=== PATIENT | male | born 1985 | race Caucasian/White ===

== ENCOUNTER 2016-11-25 01:44 | Emergency (ER) | payer OTHER ==
--- NOTE | 2016-11-25 02:01 | ED Physician Documentation ---
PD HPI ABD PAIN - Stated complaint Stated Complaint: ABD/BACK PX - Chief complaint Chief Complaint: Abd Pain - History obtained from History obtained from: Patient - History of Present Illness Timing - onset: How many hours ago (2-3 hours ago (also 24 hours ago, but resolved until 2-3 hours FACING BASTER JUMPBASTING)) Timing - duration: Hours Timing - details: Abrupt onset, Waxing and waning Pain level now: 8 Quality: Pain Location: RUQ Radiation: Right flank Improved by: Other (no ameliorating factors) Worsened by: Other (no exacerbating factors) Associated symptoms: Nausea. No: Fever, Vomiting Similar symptoms before: Has not had sx before Recently seen: Not recently seen Review of Systems Constitutional: denies: Fever Cardiac: reports: Reviewed and negative Respiratory: reports: Reviewed and negative GI: reports: Abdominal Pain, Nausea. denies: Vomiting : denies: Dysuria, Frequency PD PAST MEDICAL HISTORY - Past Medical History Past Medical History: No - Past Surgical History Past Surgical History: No - Present Medications Home Medications: Ambulatory Orders Medication Instructions Recorded Confirmed No Known Home Medications [No 11/25/16 11/25/16 Known Home Medications] - Allergies Allergies/Adverse Reactions: Allergies Allergy/AdvReac Type Severity Reaction Status Date / Time No Known Drug Allergies Allergy Verified 11/25/16 01:57 - Social History Does the pt smoke?: No Smoking Status: Never smoker Does the pt drink ETOH?: No Does the pt have substance abuse?: No - Immunizations Immunizations are current?: Yes - POLST Patient has POLST: No PD ED PE NORMAL - Vitals Vital signs reviewed: Yes - General General: Alert and oriented X 3, No acute distress, Well developed/nourished - Cardiac Cardiac: RRR, No murmur - Respiratory Respiratory: No respiratory distress, Clear bilaterally - Abdomen Abdomen: Normal bowel sounds, Soft, Non tender, Non distended - Back Back: No CVA TTP Results - Vitals Vitals: Vital Signs - 24 hr 11/25/16 11/25/16 11/25/16 01:55 02:49 04:15 Temperature 36.8 C 36.8 C Heart Rate 59 L 61 62 Respiratory 16 14 14 Rate Blood Pressure 135/91 H 127/84 H 128/88 H O2 Saturation 100 98 98 Oxygen O2 Source Room air - Labs Labs: Laboratory Tests 11/25/16 11/25/16 11/25/16 02:05 02:05 02:05 WBC 7.7 RBC 5.29 Hgb 15.3 Hct 45.0 MCV 85.1 MCH 28.9 MCHC 34.0 RDW 13.6 Plt Count 223 MPV 9.6 Neut # 3.5 Lymph # 3.2 [place] # 0.7 Eos # 0.2 Baso # 0.0 Absolute Nucleated RBC 0.00 Nucleated RBC % 0.0 Sodium 140 Potassium 3.7 Chloride 104 Carbon Dioxide 25 Anion Gap 11.0 BUN 10 Creatinine 1.1 Estimated GFR (MDRD) 79 L Glucose 115 H Calcium 9.5 Total Bilirubin 0.6 AST 20 ALT 25 Alkaline Phosphatase 60 Total Protein 7.6 Albumin 4.8 Globulin 2.8 Albumin/Globulin Ratio 1.7 Lipase 31 Urine Color YELLOW Urine Clarity CLEAR Urine pH 6.0 Ur Specific [place] 1.010 Urine Protein NEGATIVE Urine Glucose (UA) NEGATIVE Urine Ketones NEGATIVE Urine Occult Blood NEGATIVE Urine Nitrite NEGATIVE Urine Bilirubin NEGATIVE Urine Urobilinogen 0.2 (NORMAL) Ur Leukocyte Esterase NEGATIVE Ur Microscopic Review NOT INDICATED Urine Culture Comments NOT INDICATED - Rads (name of study) CT A/P Radiology: Prelim report reviewed, See rad report PD MEDICAL DECISION MAKING - ED course Complexity details: reviewed results, re-evaluated patient, considered differential, d/w patient ED course: Patient reported good symptomatic relief with toradol. Departure - Departure Disposition: 01 Home, Self Care Clinical Impression: Abdominal pain Condition: Good Instructions: ED Abdominal Pain Unkn Cause Follow-Up: [facility] [Provider Group] [facility] [Provider Group] Discharge Date/Time: 11/25/16 04:16
[2016-11-25 02:14] LABS: BASOPHILS % (AUTO) 0.6 %; EOSINOPHILS # (AUTO) 0.2 10^3/uL (0.0-0.7); HGB - HEMOGLOBIN 15.3 g/dL (14.0-18.0); LYMPHOCYTES # (AUTO) 3.2 10^3/uL (1.5-3.5); LYMPHOCYTES % (AUTO) 42.2 %; MEAN CORPUSCULAR HEMOGLOBIN 28.9 pg (27.0-31.0); MEAN CORPUSCULAR VOLUME 85.1 fL (80.0-94.0); MEAN PLATELET VOLUME 9.6 fL (7.4-11.4); MONOCYTES # (AUTO) 0.7 10^3/uL (0.0-1.0); MONOCYTES % (AUTO) 8.8 %; NEUTROPHILS # (AUTO) 3.5 10^3/uL (1.5-6.6); NEUTROPHILS % (AUTO) 45.4 %; RED BLOOD COUNT 5.29 10^6/uL (4.70-6.10); RED CELL DISTRIBUTION WIDTH 13.6 % (12.0-15.0); UNCORRECTED WHITE BLOOD COUNT 7.7 x10^3/uL; WHITE BLOOD COUNT 7.7 x10^3/uL (4.8-10.8)
[2016-11-25] MEDS ORDERED: KETOROLAC 60 MG/2 ML VIAL IVP STA (02:17)
[2016-11-25] MEDS ORDERED: ONDANSETRON 4 MG/2 ML VIAL IVP STA (02:17)
[2016-11-25 02:18] LABS: BILIRUBIN,URINE NEGATIVE (NEGATIVE)
[2016-11-25 02:20] LABS: UA CHARGE (STRIP ONLY) YES; UR CULTURE IF IND NOT INDICATED
[2016-11-25] MEDS ORDERED: KETOROLAC 30 MG/ML VIAL ONE (02:25)
[2016-11-25] MEDS ORDERED: ONDANSETRON 4 MG/2 ML VIAL ONE (02:25)
[2016-11-25 02:31] LABS: ALBUMIN/GLOBULIN RATIO 1.7 (1.0-2.2); BILIRUBIN,TOTAL 0.6 mg/dL (0.2-1.0); CALCIUM 9.5 mg/dL (8.5-10.3); CREATININE 1.1 mg/dL (0.6-1.2); POTASSIUM 3.7 mmol/L (3.5-5.0); TOTAL PROTEIN 7.6 g/dL (6.7-8.2)
--- NOTE | 2016-11-25 03:08 | CT Preliminary Report ---
Exam: CT Abdomen/Pelvis W/O IMPRESSION: No urinary tract stones or obstruction. [facility] SITE ID: [id number]
--- NOTE | 2016-11-25 03:10 | CT Report ---
EXAM: CT ABDOMEN AND PELVIS (CT KUB) EXAM DATE: 11/25/2016 02:51 AM. CLINICAL HISTORY: Right flank pain. COMPARISONS: None. TECHNIQUE: Routine axial helical CT imaging was performed through the abdomen and pelvis without IV c ontrast. Reconstructions: Coronal and sagittal. In accordance with CT protocol optimization, one or more of the following dose reduction techniques w ere utilized for this exam: automated exposure control, adjustment of mA and/or KV based on patient s ize, or use of iterative reconstructive technique. FINDINGS: Lung Bases: Unremarkable. Right Kidney/Ureter: No stones, hydronephrosis, or hydroureter. No perinephric fat stranding. Left Kidney/Ureter: No stones, hydronephrosis, or hydroureter. No perinephric fat stranding. Other Solid Organs: Noncontrast images of the solid organs are grossly unremarkable. Gallbladder/Bile Ducts: Unremarkable. Peritoneal Cavity: No free fluid, free air or jennifer adenopathy. Bowel is grossly unremarkable. Normal appendix. Pelvic Organs: No bladder stones or wall thickening. Noncontrast images of the visualized pelvic orga ns are unremarkable. Vasculature: Unremarkable. Other: None. IMPRESSION: No urinary tract stones or obstruction. [facility] Referring Provider Line: [phone] SITE ID: [id number]
[2016-11-25] MEDS ORDERED: HYDROcod/ACET 5/325 Prepack 6 PO STA (04:00)
[2016-11-25] MEDS ORDERED: HYDROcod/ACET 5/325 Prepack 6 PO ONE (04:14)
[2016-11-25 04:16] VITALS: BP 128/88
== END 2016-11-25 04:16 | disposition home or self-care (01) ==
LOC: ED 01:44
DX: R10.11 Right upper quadrant pain (principal); R10.31 Right lower quadrant pain
CPT/HCPCS: 36415; 74176; 80053; 81001; 81003; 83690; 85025; 87086; 96374; 96375; 99284

== ENCOUNTER 2017-02-14 10:37 | Outpatient (CLI) | payer OTHER ==
--- NOTE | 2017-02-15 16:21 | XRAY Report ---
DATE OF SERVICE: 02/14/2017 TWO VIEW RIGHT GREAT TOE: 02/14/2017 CLINICAL INDICATION: Pain. FINDINGS: AP, lateral, oblique views of the right great toe demonstrate no evidence of fracture or dislocation. The joint spaces are preserved. No radiopaque foreign body is seen in the soft tissues . IMPRESSION: Normal right great toe. TD: 02/14/2017 18:19
== END 2017-02-14 10:38 | disposition home or self-care (01) ==
LOC: DI 10:37
PROVIDERS: ATTEND Internal Medicine
DX: M79.674 Pain in right toe(s) (principal)
CPT/HCPCS: 73660

== ENCOUNTER 2017-03-17 04:04 | Emergency (ER) | payer OTHER ==
--- NOTE | 2017-03-17 04:33 | ED Physician Documentation ---
PD HPI MHE - Stated complaint Stated Complaint: SI - Chief complaint Chief Complaint: MHE - History obtained from History obtained from: Patient - History of Present Illness Primary symptom: Suicidal ideation, Depression (he says he had had depression for "awhile" with treatment about 4-5 months ago with antidepressant for a month that did not help. He does not have current counseling nor antidepressants. Had worsening feeling of depression this past evening with thoughts of wanting to cut his wrists. He told his about it and she brought him here. He had some alcohol in the evening. Denies drug use. He would like help for his depression. Currently sees [place] [facility]. Retired from [employer] about 5 years ago.). No: Self harm - cut Timing - onset: Yesterday Contributing factors: No: Substance abuse - ETOH, Substance abuse - drugs Similar symptoms before: Diagnosis (depression, states he did cut his wrists several years ago. Denies hospitalization for psych.) Recently seen: Not recently seen Review of Systems Constitutional: denies: Fever, Chills Nose: denies: Rhinorrhea / runny nose, Congestion Throat: denies: Sore throat Respiratory: denies: Cough GI: denies: Vomiting, Diarrhea Neurologic: denies: Generalized weakness, Focal weakness, Numbness, Altered mental status, Headache, Head injury Psychiatric: reports: Depressed, Suicidal (ideation without feeling acute intent ). denies: Homicidal, Hallucinations, Delusions, Anxiety, Insomnia Endocrine: denies: Weight loss Immunocompromised: denies: Immunocompromised PD PAST MEDICAL HISTORY - Past Medical History Cardiovascular: None Respiratory: None Neuro: None Psych: Depression - Past Surgical History Past Surgical History: No - Present Medications Home Medications: Ambulatory Orders Medication Instructions Recorded Confirmed No Known Home Medications [No 11/25/16 03/17/17 Known Home Medications] - Allergies Allergies/Adverse Reactions: Allergies Allergy/AdvReac Type Severity Reaction Status Date / Time No Known Drug Allergies Allergy Verified 03/17/17 04:23 - Living Situation Living Situation: reports: With spouse/s.o. Living Arrangement: reports: At home - Social History Does the pt smoke?: No Smoking Status: Never smoker Does the pt drink ETOH?: Yes Does the pt have substance abuse?: No - Family History Family history: reports: Non contributory - Immunizations Immunizations are current?: Yes - POLST Patient has POLST: No PD ED PE NORMAL - Vitals Vital signs reviewed: Yes - General General: Alert and oriented X 3, No acute distress, Well developed/nourished - HEENT HEENT: Atraumatic, PERRL (nonicteric), Pharynx benign - Neck Neck: Supple, no meningeal sign, No adenopathy - Cardiac Cardiac: RRR, No murmur - Respiratory Respiratory: Clear bilaterally - Abdomen Abdomen: Soft, Non tender - Male Male : Deferred - Rectal Rectal: Deferred - Back Back: No CVA TTP - Derm Derm: Normal color, Warm and dry - Extremities Extremities: Normal ROM s pain, No edema, No calf tenderness / cord - Neuro Neuro: Alert and oriented X 3, No motor deficit, Normal speech Eye Opening: Spontaneous Motor: Obeys Commands Verbal: Oriented GCS Score: 15 - Psych Psych: No: Normal mood (depressed and somewhat flat affect) Results - Vitals Vitals: Vital Signs - 24 hr 03/17/17 04:19 Temperature 36.2 C L Heart Rate 82 Respiratory 16 Rate Blood Pressure 120/87 H O2 Saturation 96 Oxygen O2 Source Room air - Labs Labs: Laboratory Tests 03/17/17 03/17/17 03/17/17 04:15 04:58 04:58 WBC 4.6 L RBC 5.15 Hgb 14.9 Hct 45.5 MCV 88.4 MCH 28.9 MCHC 32.7 RDW 14.2 Plt Count 248 MPV 8.9 Neut # 2.4 Lymph # 1.9 [place] # 0.3 Eos # 0.0 Baso # 0.0 Absolute Nucleated RBC 0.00 Nucleated RBC % 0.0 Sodium 143 Potassium 3.7 Chloride 108 Carbon Dioxide 23 Anion Gap 12.0 BUN 10 Creatinine 0.7 Estimated GFR (MDRD) 133 Glucose 116 H Calcium 9.2 Total Bilirubin 0.6 AST 21 ALT 19 Alkaline Phosphatase 54 Total Protein 7.4 Albumin 4.4 Globulin 3.0 Albumin/Globulin Ratio 1.5 Lipase 16 L TSH Urine Color YELLOW Urine Clarity CLEAR Urine pH 5.5 Ur Specific [place] >=1.030 H Urine Protein NEGATIVE Urine Glucose (UA) NEGATIVE Urine Ketones 15 H Urine Occult Blood TRACE-INTA Urine Nitrite NEGATIVE Urine Bilirubin NEGATIVE Urine Urobilinogen 0.2 (NORMAL) Ur Leukocyte Esterase NEGATIVE Ur Microscopic Review NOT INDICATED Urine Culture Comments NOT INDICATED Salicylates < 6.0 Urine Opiates Screen NEGATIVE Ur Oxycodone Screen NEGATIVE Urine Methadone Screen NEGATIVE Ur Propoxyphene Screen NEGATIVE Acetaminophen < 10 L Ur Barbiturates Screen NEGATIVE Ur Tricyclics Screen NEGATIVE Ur Phencyclidine Scrn NEGATIVE Ur Amphetamine Screen NEGATIVE U Methamphetamines Scrn NEGATIVE U Benzodiazepines Scrn NEGATIVE Urine Cocaine Screen NEGATIVE U Cannabinoids Screen NEGATIVE Ethyl Alcohol 196.2 03/17/17 04:58 WBC RBC Hgb Hct MCV MCH MCHC RDW Plt Count MPV Neut # Lymph # [place] # Eos # Baso # Absolute Nucleated RBC Nucleated RBC % Sodium Potassium Chloride Carbon Dioxide Anion Gap BUN Creatinine Estimated GFR (MDRD) Glucose Calcium Total Bilirubin AST ALT Alkaline Phosphatase Total Protein Albumin Globulin Albumin/Globulin Ratio Lipase TSH 1.36 Urine Color Urine Clarity Urine pH Ur Specific [place] Urine Protein Urine Glucose (UA) Urine Ketones Urine Occult Blood Urine Nitrite Urine Bilirubin Urine Urobilinogen Ur Leukocyte Esterase Ur Microscopic Review Urine Culture Comments Salicylates Urine Opiates Screen Ur Oxycodone Screen Urine Methadone Screen Ur Propoxyphene Screen Acetaminophen Ur Barbiturates Screen Ur Tricyclics Screen Ur Phencyclidine Scrn Ur Amphetamine Screen U Methamphetamines Scrn U Benzodiazepines Scrn Urine Cocaine Screen U Cannabinoids Screen Ethyl Alcohol PD MEDICAL DECISION MAKING - ED course Complexity details: considered differential (Patient advised about the time course with needing to clear alcohol level, though SW should be able to talk with him when they come in since he is voluntary and wanting help. I am not sure if he needs hospitalization or just getting set up with counseling. Sounds like he had dysthymia/cyclothymia. ), d/w patient Departure - Departure Clinical Impression: Suicidal ideation Depression Qualifiers: Depression Type: major depressive disorder Major depression recurrence: recurrent Active/Remission status: currently active Major depression episode severity: moderate Qualified Code(s): F33.1 - Major depressive disorder, recurrent, moderate Condition: Stable Record reviewed to determine appropriate education?: Yes
[2017-03-17 04:57] LABS: MUDS CUTOFF CONCENTRATIONS CUTOFF CONC BELOW:
[2017-03-17 04:59] LABS: BILIRUBIN,URINE NEGATIVE (NEGATIVE); GLUCOSE, URINE (UA) NEGATIVE (NEGATIVE); KETONES,URINE (UA) 15 mg/dL (NEGATIVE); LEUKOCYTE ESTERASE, URINE NEGATIVE (NEGATIVE); NITRITE,URINE NEGATIVE (NEGATIVE); OCCULT BLOOD,URINE TRACE-INTA (NEGATIVE); PH,URINE 5.5 PH (5.0-7.5); PROTEIN,URINE NEGATIVE (NEGATIVE); UROBILINOGEN,URINE 0.2 (NORMAL) E.U./dL (NORMAL)
[2017-03-17 05:07] LABS: CLARITY,URINE CLEAR (CLEAR)
[2017-03-17 05:09] LABS: AMPHETAMINE SCREEN,URINE NEGATIVE (NEGATIVE); BENZODIAZEPINES SCREEN, URINE NEGATIVE (NEGATIVE); COCAINE SCREEN URINE NEGATIVE (NEGATIVE); METHADONE SCREEN, URINE NEGATIVE (NEGATIVE); METHAMPHETAMINES SCREEN, URINE NEGATIVE (NEGATIVE); OPIATE SCREEN, URINE NEGATIVE (NEGATIVE); OXYCODONE SCREEN, URINE NEGATIVE (NEGATIVE); PROPOXYPHENE SCREEN, URINE NEGATIVE (NEGATIVE); TRICYCLIC ANTIDEPRESSANT,URINE NEGATIVE (NEGATIVE)
[2017-03-17 05:10] LABS: BASOPHILS % (AUTO) 0.5 %; HGB - HEMOGLOBIN 14.9 g/dL (14.0-18.0); LYMPHOCYTES # (AUTO) 1.9 10^3/uL (1.5-3.5); LYMPHOCYTES % (AUTO) 40.1 %; MEAN CORPUSCULAR HEMOGLOBIN 28.9 pg (27.0-31.0); MEAN CORPUSCULAR HGB CONC 32.7 g/dL (32.0-36.0); MEAN CORPUSCULAR VOLUME 88.4 fL (80.0-94.0); MEAN PLATELET VOLUME 8.9 fL (7.4-11.4); MONOCYTES # (AUTO) 0.3 10^3/uL (0.0-1.0); MONOCYTES % (AUTO) 7.1 %; NEUTROPHILS # (AUTO) 2.4 10^3/uL (1.5-6.6); NEUTROPHILS % (AUTO) 51.3 %; PLT - PLATELET COUNT 248 10^3/uL (130-450); RED BLOOD COUNT 5.15 10^6/uL (4.70-6.10); RED CELL DISTRIBUTION WIDTH 14.2 % (12.0-15.0); WHITE BLOOD COUNT 4.6 x10^3/uL (4.8-10.8)
[2017-03-17 05:19] LABS: ALBUMIN 4.4 g/dL (3.2-5.5); ALBUMIN/GLOBULIN RATIO 1.5 (1.0-2.2); ALKALINE PHOSPHATASE 54 IU/L (42-121); ALT ALANINE AMINOTRANSFERASE 19 IU/L (10-60); AST ASPARTATE AMINOTRANSFERASE 21 IU/L (10-42); BILIRUBIN,TOTAL 0.6 mg/dL (0.2-1.0); BUN - BLOOD UREA NITROGEN 10 mg/dL (6-20); CALCIUM 9.2 mg/dL (8.5-10.3); CARBON DIOXIDE - CO2 23 mmol/L (21-32); CHLORIDE 108 mmol/L (101-111); CREATININE 0.7 mg/dL (0.6-1.2); GFR - MDRD 133 (>89); GLUCOSE 116 mg/dL (70-100); LIPASE 16 U/L (22-51); SALICYLATE < 6.0 mg/dL; SODIUM 143 mmol/L (135-145); TOTAL PROTEIN 7.4 g/dL (6.7-8.2)
[2017-03-17 05:24] LABS: ACETAMINOPHEN < 10 ug/mL (10-30)
--- NOTE | 2017-03-17 08:02 | ED Physician Documentation ---
History of Present Illness - Stated complaint Stated Complaint: SI - Chief complaint Chief Complaint: MHE PD PAST MEDICAL HISTORY - Past Medical History Past Medical History: No Cardiovascular: None Respiratory: None Neuro: None Endocrine/Autoimmune: None GI: None : None HEENT: None Psych: Depression Musculoskeletal: None Derm: None Other Past Medical History: MEDICALLY DISCHARGED FROM [facility] w/ DISABILITY (MENTAL )...DISCHARGED X 1 yr ago supposedly HAS REFERRAL AT [facility] but still waiting... - Past Surgical History Past Surgical History: No - Present Medications Home Medications: Ambulatory Orders Medication Instructions Recorded Confirmed No Known Home Medications [No 11/25/16 03/17/17 Known Home Medications] - Allergies Allergies/Adverse Reactions: Allergies Allergy/AdvReac Type Severity Reaction Status Date / Time No Known Drug Allergies Allergy Verified 03/17/17 04:23 - Social History Does the pt smoke?: No Smoking Status: Never smoker Does the pt drink ETOH?: Yes Does the pt have substance abuse?: No - Immunizations Immunizations are current?: Yes - POLST Patient has POLST: No Results - Vitals Vitals: Vital Signs - 24 hr 03/17/17 03/17/17 03/17/17 04:19 07:01 13:08 Temperature 36.2 C L 36.7 C Heart Rate 82 83 72 Respiratory 16 16 15 Rate Blood Pressure 120/87 H 112/68 104/72 O2 Saturation 96 98 97 Oxygen O2 Source Room air - Labs Labs: Laboratory Tests 03/17/17 03/17/17 03/17/17 04:15 04:58 04:58 WBC 4.6 L RBC 5.15 Hgb 14.9 Hct 45.5 MCV 88.4 MCH 28.9 MCHC 32.7 RDW 14.2 Plt Count 248 MPV 8.9 Neut # 2.4 Lymph # 1.9 [place] # 0.3 Eos # 0.0 Baso # 0.0 Absolute Nucleated RBC 0.00 Nucleated RBC % 0.0 Sodium 143 Potassium 3.7 Chloride 108 Carbon Dioxide 23 Anion Gap 12.0 BUN 10 Creatinine 0.7 Estimated GFR (MDRD) 133 Glucose 116 H Calcium 9.2 Total Bilirubin 0.6 AST 21 ALT 19 Alkaline Phosphatase 54 Total Protein 7.4 Albumin 4.4 Globulin 3.0 Albumin/Globulin Ratio 1.5 Lipase 16 L TSH Urine Color YELLOW Urine Clarity CLEAR Urine pH 5.5 Ur Specific [place] >=1.030 H Urine Protein NEGATIVE Urine Glucose (UA) NEGATIVE Urine Ketones 15 H Urine Occult Blood TRACE-INTA Urine Nitrite NEGATIVE Urine Bilirubin NEGATIVE Urine Urobilinogen 0.2 (NORMAL) Ur Leukocyte Esterase NEGATIVE Ur Microscopic Review NOT INDICATED Urine Culture Comments NOT INDICATED Salicylates < 6.0 Urine Opiates Screen NEGATIVE Ur Oxycodone Screen NEGATIVE Urine Methadone Screen NEGATIVE Ur Propoxyphene Screen NEGATIVE Acetaminophen < 10 L Ur Barbiturates Screen NEGATIVE Ur Tricyclics Screen NEGATIVE Ur Phencyclidine Scrn NEGATIVE Ur Amphetamine Screen NEGATIVE U Methamphetamines Scrn NEGATIVE U Benzodiazepines Scrn NEGATIVE Urine Cocaine Screen NEGATIVE U Cannabinoids Screen NEGATIVE Ethyl Alcohol 196.2 03/17/17 03/17/17 03/17/17 04:58 09:10 11:15 WBC RBC Hgb Hct MCV MCH MCHC RDW Plt Count MPV Neut # Lymph # [place] # Eos # Baso # Absolute Nucleated RBC Nucleated RBC % Sodium Potassium Chloride Carbon Dioxide Anion Gap BUN Creatinine Estimated GFR (MDRD) Glucose Calcium Total Bilirubin AST ALT Alkaline Phosphatase Total Protein Albumin Globulin Albumin/Globulin Ratio Lipase TSH 1.36 Urine Color Urine Clarity Urine pH Ur Specific [place] Urine Protein Urine Glucose (UA) Urine Ketones Urine Occult Blood Urine Nitrite Urine Bilirubin Urine Urobilinogen Ur Leukocyte Esterase Ur Microscopic Review Urine Culture Comments Salicylates Urine Opiates Screen Ur Oxycodone Screen Urine Methadone Screen Ur Propoxyphene Screen Acetaminophen Ur Barbiturates Screen Ur Tricyclics Screen Ur Phencyclidine Scrn Ur Amphetamine Screen U Methamphetamines Scrn U Benzodiazepines Scrn Urine Cocaine Screen U Cannabinoids Screen Ethyl Alcohol 109.0 64.9 PD MEDICAL DECISION MAKING - ED course ED course: assumed care 730 AM 31 male suicidal ideations no harm done per pt (no OD etc) wants help was intoxicated waiting on rpt BA and then SW hubert went to see pt he is feeling a little bit better now denies recent fever cough NVD KO AP CP pt sober approx 11 AM seen by MIGDALIA and not felt to be danger to self or tohers and safe for dc - see MIGDALIA note Departure - Departure Disposition: 01 Home, Self Care Clinical Impression: Suicidal ideation Depression Qualifiers: Depression Type: major depressive disorder Major depression recurrence: recurrent Active/Remission status: currently active Major depression episode severity: moderate Qualified Code(s): F33.1 - Major depressive disorder, recurrent, moderate Condition: Stable
[2017-03-17 13:09] VITALS: BP 104/72
== END 2017-03-17 13:25 | disposition home or self-care (01) ==
LOC: ED 04:04
DX: R45.851 Suicidal ideations (principal); F33.1 Major depressive disorder, recurrent, moderate
CPT/HCPCS: 36415; 80053; 80306; 80307; 80320; 80329; 81001; 81003; 83690; 84443; 85025; 87086; 99283; 99284

== ENCOUNTER 2017-08-02 12:34 | Emergency (ER) | payer OTHER ==
[2017-08-02 13:26] LABS: BASOPHILS % (AUTO) 0.4 %; EOSINOPHILS # (AUTO) 0.1 10^3/uL (0.0-0.7); EOSINOPHILS % (AUTO) 1.3 %; HGB - HEMOGLOBIN 14.7 g/dL (14.0-18.0); LYMPHOCYTES # (AUTO) 1.8 10^3/uL (1.5-3.5); LYMPHOCYTES % (AUTO) 23.7 %; MEAN CORPUSCULAR HEMOGLOBIN 29.7 pg (27.0-31.0); MEAN CORPUSCULAR HGB CONC 33.6 g/dL (32.0-36.0); MEAN CORPUSCULAR VOLUME 88.2 fL (80.0-94.0); MEAN PLATELET VOLUME 8.6 fL (7.4-11.4); MONOCYTES # (AUTO) 0.4 10^3/uL (0.0-1.0); MONOCYTES % (AUTO) 5.9 %; NEUTROPHILS # (AUTO) 5.1 10^3/uL (1.5-6.6); NEUTROPHILS % (AUTO) 68.7 %; PLT - PLATELET COUNT 272 10^3/uL (130-450); RED BLOOD COUNT 4.97 10^6/uL (4.70-6.10); RED CELL DISTRIBUTION WIDTH 14.7 % (12.0-15.0); WHITE BLOOD COUNT 7.4 x10^3/uL (4.8-10.8)
[2017-08-02 13:44] LABS: ALBUMIN 4.4 g/dL (3.2-5.5); ALBUMIN/GLOBULIN RATIO 1.3 (1.0-2.2); ALKALINE PHOSPHATASE 61 IU/L (42-121); ALT ALANINE AMINOTRANSFERASE 154 IU/L (10-60); AST ASPARTATE AMINOTRANSFERASE 110 IU/L (10-42); BILIRUBIN,TOTAL 0.7 mg/dL (0.2-1.0); BUN - BLOOD UREA NITROGEN 10 mg/dL (6-20); CALCIUM 9.9 mg/dL (8.5-10.3); CARBON DIOXIDE - CO2 25 mmol/L (21-32); CHLORIDE 105 mmol/L (101-111); CREATININE 0.8 mg/dL (0.6-1.2); GFR - MDRD 114 (>89); GLUCOSE 131 mg/dL (70-100); LIPASE 24 U/L (22-51); SALICYLATE < 6.0 mg/dL; SODIUM 138 mmol/L (135-145); TOTAL PROTEIN 7.8 g/dL (6.7-8.2)
[2017-08-02 14:19] LABS: ACETAMINOPHEN < 10 ug/mL (10-30)
--- NOTE | 2017-08-02 14:42 | ED Physician Documentation ---
PD HPI MHE - Stated complaint Stated Complaint: MHE - Chief complaint Chief Complaint: MHE - History obtained from History obtained from: Patient - History of Present Illness Primary symptom: Anxiety, Other (insomnia at night, but feeling groggy and somewhat confused during the day the past week. Had been Rx new meds about 10 days ago - [facility], and Baclofen for back and foot pain by his primary care.). No: Suicide attempt Timing - onset: How many weeks ago (1) Contributing factors: No: Substance abuse - ETOH, Substance abuse - drugs Recently seen: Clinic (about 10 days ago for his back and foot pain and also had TelePsych appt with his psych provider.) Review of Systems Constitutional: denies: Fever, Chills Nose: denies: Rhinorrhea / runny nose, Congestion Throat: denies: Sore throat Cardiac: denies: Chest pain / pressure, Palpitations Respiratory: denies: Dyspnea, Cough GI: denies: Abdominal Pain, Nausea, Vomiting, Diarrhea Skin: denies: Rash Neurologic: reports: Altered mental status (feeling spacy per patient). denies : Headache, Head injury PD PAST MEDICAL HISTORY - Past Medical History Cardiovascular: None Respiratory: None Endocrine/Autoimmune: None GI: None : None HEENT: None Psych: Depression Musculoskeletal: None Derm: None - Past Surgical History Past Surgical History: No - Present Medications Home Medications: Ambulatory Orders Medication Instructions Recorded Confirmed Baclofen 10 mg PO TID PRN 08/02/17 08/02/17 Mirtazapine 15 mg PO 08/02/17 Naproxen 375 mg PO BID #20 tablet 08/02/17 Propranolol [Inderal] 10 mg PO BID 08/02/17 08/02/17 QUEtiapine [SEROquel] 100 mg PO QPM 08/02/17 08/02/17 Sertraline [Zoloft] 100 mg PO DAILY 08/02/17 08/02/17 diazePAM [Diazepam] 5 mg PO QPM PRN #10 tablet 08/02/17 - Allergies Allergies/Adverse Reactions: Allergies Allergy/AdvReac Type Severity Reaction Status Date / Time No Known Drug Allergies Allergy Verified 08/02/17 12:51 - Social History Does the pt smoke?: No Smoking Status: Never smoker Does the pt drink ETOH?: Yes Does the pt have substance abuse?: No - Immunizations Immunizations are current?: Yes - POLST Patient has POLST: No PD ED PE NORMAL - Vitals Vital signs reviewed: Yes - General General: Alert and oriented X 3, Well developed/nourished - HEENT HEENT: Pharynx benign - Neck Neck: Supple, no meningeal sign, No adenopathy - Cardiac Cardiac: RRR, No murmur - Respiratory Respiratory: Clear bilaterally - Abdomen Abdomen: Soft, Non tender - Derm Derm: Normal color, Warm and dry - Neuro Neuro: Alert and oriented X 3, No motor deficit, Normal speech, Other ( somnolent and does seem a little slow to answer some questions, can't tell if tired or med effect. ) Results - Vitals Vitals: Vital Signs - 24 hr 08/02/17 08/02/17 08/02/17 12:46 16:25 16:59 Temperature 36.4 C L Heart Rate 76 65 62 Respiratory 22 14 16 Rate Blood Pressure 142/91 H 124/74 125/95 H O2 Saturation 97 98 100 Oxygen O2 Source Room air - Labs Labs: Laboratory Tests 08/02/17 08/02/17 13:21 13:21 WBC 7.4 RBC 4.97 Hgb 14.7 Hct 43.9 MCV 88.2 MCH 29.7 MCHC 33.6 RDW 14.7 Plt Count 272 MPV 8.6 Neut # (Auto) 5.1 Lymph # (Auto) 1.8 [place] # (Auto) 0.4 Eos # (Auto) 0.1 Baso # (Auto) 0.0 Absolute Nucleated RBC 0.01 Nucleated RBC % 0.1 Sodium 138 Potassium 3.9 Chloride 105 Carbon Dioxide 25 Anion Gap 8.0 BUN 10 Creatinine 0.8 Estimated GFR (MDRD) 114 Glucose 131 H Calcium 9.9 Total Bilirubin 0.7 AST 110 H ALT 154 H Alkaline Phosphatase 61 Total Protein 7.8 Albumin 4.4 Globulin 3.4 Albumin/Globulin Ratio 1.3 Lipase 24 Salicylates < 6.0 Acetaminophen < 10 L Ethyl Alcohol < 5.0 PD MEDICAL DECISION MAKING - ED course Complexity details: considered differential ([facility], discussed his symptoms and my thoughts of side effects from some of the meds, and we concurred on some med changes - to stop the Baclofen ( new med), decrease the Seroquel to just the PM dose (new med), keep the Sertraline (older med), and add in something at PM for sleep for up to 10 days. He is to contact her next week to update how he is doing.), d/w patient (he is feeling groggy during the day and still not sleeping at night for more than 4-5 hours. Some suicidal thoughts but not more than baseline. No intent of action. Thinks about his young child and has forward thinking. ) - Sepsis Event Vital Signs: Vital Signs - 24 hr 08/02/17 08/02/17 08/02/17 12:46 16:25 16:59 Temperature 36.4 C L Heart Rate 76 65 62 Respiratory 22 14 16 Rate Blood Pressure 142/91 H 124/74 125/95 H O2 Saturation 97 98 100 Oxygen O2 Source Room air Departure - Departure Disposition: 01 Home, Self Care Clinical Impression: Anxiety Insomnia Qualifiers: Insomnia type: unspecified Qualified Code(s): G47.00 - Insomnia, unspecified Altered mental status Qualifiers: Altered mental status type: somnolence Qualified Code(s): R40.0 - Somnolence Condition: Stable Record reviewed to determine appropriate education?: Yes Follow-Up: [facility] [Provider Group] Prescriptions: diazePAM [Diazepam] 5 mg PO QPM PRN #10 tablet PRN Reason: Insomnia Naproxen 375 mg PO BID #20 tablet Comments: You may be having the tiredness and feeling "off" during the day because montoya are not sleeping well or could be side effect of some of your medications (or the mix of them). Your newer medicines, baclofen as well as the Seroquel can both cause sleepiness and confusion. The Seroquel is best for trying to help with sleep at night so would continue that, but stop the daytime dose. The baclofen can have a lot of the side effects you are having, so stop that medication. Instead, take naproxen for pains. If you are still having trouble with sleeping , add diazepam at night short term as needed. I talked with your Psychiatric provider through the [place] and we discussed these medication changes. So summarize: Continue the Seroquel at bedtime, current dose, and stop the day dose. Stop the Baclofen. Take Naproxen twice daily for back/foot pains. Add Diazepam at bedtime if still having trouble sleeping. Continue other current medications. Discharge Date/Time: 08/02/17 17:00
[2017-08-02 17:00] VITALS: BP 125/95
== END 2017-08-02 17:00 | disposition home or self-care (01) ==
LOC: ED 12:34
DX: F41.9 Anxiety disorder, unspecified (principal); R41.82 Altered mental status, unspecified; G47.00 Insomnia, unspecified; F32.9 Major depressive disorder, single episode, unspecified
CPT/HCPCS: 36415; 80053; 80307; 80320; 80329; 83690; 85025; 99283

== ENCOUNTER 2017-08-08 15:32 | Emergency (ER) | payer OTHER ==
[2017-08-08] MEDS ORDERED: DEXAMETHASONE 10 MG/ML VIAL PO STA (17:54)
--- NOTE | 2017-08-08 18:00 | ED Physician Documentation ---
History of Present Illness - Stated complaint Stated Complaint: MED REACTION - Chief complaint Chief Complaint: MHE - History obtained from History obtained from: Patient - History of Present Illness Timing: Today - Additonal information Additional information: 31-year-old male with a history of anxiety and depression and insomnia has increased his use of medications for sleep. He is now excessively drowsy in the daytime and he is taking mertazipine (remerone), quetipine (seraquel) and sertraline (zoloft). He is having some trouble with sleep at night and has increased his use of the seaquel to try to get to sleep. He has found excessive daytime sleepiness and he feels he needs his medications adjusted. He has been trying to get to bed a 8pm and is having a hard time falling asleep. He has a history of depression and anxiety and his anxiety is the issue most recently. He denies suicidality. He does have an appointment to see a prescriber in 2 days time. Review of Systems Constitutional: denies: Fever, Chills Eyes: denies: Decreased vision Ears: denies: Ear pain Nose: reports: Rhinorrhea / runny nose, Congestion Throat: denies: Sore throat Cardiac: denies: Chest pain / pressure, Palpitations Respiratory: denies: Dyspnea, Cough GI: denies: Abdominal Pain, Nausea, Vomiting : denies: Dysuria, Frequency Skin: denies: Rash Musculoskeletal: denies: Neck pain, Back pain, Extremity pain Neurologic: denies: Generalized weakness, Focal weakness, Numbness, Seizure, Headache, Head injury Psychiatric: reports: Anxiety, Insomnia. denies: Suicidal, Homicidal, Hallucinations, Delusions PD PAST MEDICAL HISTORY - Past Medical History Cardiovascular: None Respiratory: None Endocrine/Autoimmune: None GI: None : None HEENT: None Psych: Depression Musculoskeletal: None Derm: None - Past Surgical History Past Surgical History: No - Present Medications Home Medications: Ambulatory Orders Medication Instructions Recorded Confirmed Baclofen 10 mg PO TID PRN 08/02/17 08/02/17 Mirtazapine 15 mg PO 08/02/17 Naproxen 375 mg PO BID #20 tablet 08/02/17 Propranolol [Inderal] 10 mg PO BID 08/02/17 08/02/17 QUEtiapine [SEROquel] 100 mg PO QPM 08/02/17 08/02/17 Sertraline [Zoloft] 100 mg PO DAILY 08/02/17 08/02/17 diazePAM [Diazepam] 5 mg PO QPM PRN #10 tablet 08/02/17 Azithromycin [Zithromax] 250 mg PO DAILY #6 tablet 08/08/17 - Allergies Allergies/Adverse Reactions: Allergies Allergy/AdvReac Type Severity Reaction Status Date / Time No Known Drug Allergies Allergy Verified 08/02/17 12:51 - Social History Does the pt smoke?: No Smoking Status: Never smoker Does the pt drink ETOH?: Yes Does the pt have substance abuse?: No - Immunizations Immunizations are current?: Yes - POLST Patient has POLST: No PD ED PE NORMAL - Vitals Vital signs reviewed: Yes (tachy and hypertensive ) - General General: Alert and oriented X 3, No acute distress, Well developed/nourished - HEENT HEENT: Atraumatic, PERRL, EOMI, Other (both TM's are inflamed with distortion of the landmarks and the tonsils are 1+ and cryptic without exudate. ) - Neck Neck: Supple, no meningeal sign, No bony TTP - Cardiac Cardiac: RRR, No murmur - Respiratory Respiratory: No respiratory distress, Clear bilaterally - Abdomen Abdomen: Soft, Non tender - Back Back: No CVA TTP, No spinal TTP - Derm Derm: Normal color, Warm and dry, No rash - Extremities Extremities: No deformity, No edema - Neuro Neuro: Alert and oriented X 3, bridge tender 2-12 intact, No motor deficit, No sensory deficit, Normal speech Eye Opening: Spontaneous Motor: Obeys Commands Verbal: Oriented GCS Score: 15 - Psych Psych: Normal mood, Normal affect Results - Vitals Vitals: Vital Signs - 24 hr 08/08/17 15:51 Temperature 36.4 C L Heart Rate 102 H Respiratory 18 Rate Blood Pressure 153/87 H O2 Saturation 98 Oxygen O2 Source Room air PD MEDICAL DECISION MAKING - ED course Complexity details: reviewed results, re-evaluated patient, considered differential, d/w patient ED course: 11-year-old male with history of anxiety and depression denies any suicidality he does state that he took more of his sleep medication last night in an attempt to sleep and today he has excessive daytime sleepiness. I have reviewed with the patient his sleep hygiene does appear he is attempting to go to sleep much too early in the night I have recommended that he stay awake until midnight or 1:00 in the morning prior to trying to sleep. I have also found on examination bilateral otitis and I have suggested the patient we treat this even though he is having few symptoms related to this, that he is aware of. He is administered decadron 10mg PO and we will put him on a course of antibiotic. I have asked him to stop the seroquel entirely and he will continue the mertazipine and sertraline. - Sepsis Event Vital Signs: Vital Signs - 24 hr 08/08/17 15:51 Temperature 36.4 C L Heart Rate 102 H Respiratory 18 Rate Blood Pressure 153/87 H O2 Saturation 98 Oxygen O2 Source Room air Departure - Departure Disposition: Home, Self Care Clinical Impression: Medication side effects Insomnia Qualifiers: Insomnia type: unspecified Qualified Code(s): G47.00 - Insomnia, unspecified Otitis media Qualifiers: Otitis media type: suppurative Chronicity: acute Laterality: bilateral Recurrence: not specified as recurrent Spontaneous tympanic membrane rupture: without spontaneous rupture Qualified Code(s): H66.003 - Acute suppurative otitis media without spontaneous rupture of ear drum, bilateral Condition: Stable Instructions: ED Insomnia, ED Otitis Media Acute Adult Follow-Up: Ambar Fine MD [Primary Care Provider] - Prescriptions: Azithromycin [Zithromax] 250 mg PO DAILY #6 tablet Comments: Today it appears you have excessive sleepiness that is likely related to use of the Seroquel. Stop taking this medication. I recommend that at night you not get into bed until midnight or 1 AM. At that point if you are still having some trouble trying to get to sleep use a single Benadryl. Follow-up with your prescriber in 2 days time as planned.
[2017-08-08 18:21] VITALS: BP 145/88
== END 2017-08-08 18:20 | disposition home or self-care (01) ==
LOC: ED 15:32
DX: G47.00 Insomnia, unspecified (principal); H66.003 Acute suppurative otitis media without spontaneous rupture of ear drum, bilateral; T43.595A Adverse effect of other antipsychotics and neuroleptics, initial encounter; F32.9 Major depressive disorder, single episode, unspecified; F41.9 Anxiety disorder, unspecified
CPT/HCPCS: 99283

== ENCOUNTER 2018-01-20 15:09 | Emergency (ER) | payer OTHER ==
[2018-01-20 15:42] LABS: BASOPHILS % (AUTO) 0.4 %; EOSINOPHILS # (AUTO) 0.2 10^3/uL (0.0-0.7); EOSINOPHILS % (AUTO) 4.6 %; HGB - HEMOGLOBIN 15.5 g/dL (14.0-18.0); LYMPHOCYTES # (AUTO) 1.5 10^3/uL (1.5-3.5); LYMPHOCYTES % (AUTO) 29.8 %; MEAN CORPUSCULAR HEMOGLOBIN 29.6 pg (27.0-31.0); MEAN CORPUSCULAR HGB CONC 34.1 g/dL (32.0-36.0); MEAN CORPUSCULAR VOLUME 86.7 fL (80.0-94.0); MEAN PLATELET VOLUME 9.3 fL (7.4-11.4); MONOCYTES # (AUTO) 0.5 10^3/uL (0.0-1.0); MONOCYTES % (AUTO) 9.3 %; NEUTROPHILS # (AUTO) 2.7 10^3/uL (1.5-6.6); NEUTROPHILS % (AUTO) 55.9 %; PLT - PLATELET COUNT 138 10^3/uL (130-450); RED BLOOD COUNT 5.25 10^6/uL (4.70-6.10); RED CELL DISTRIBUTION WIDTH 13.3 % (12.0-15.0); WHITE BLOOD COUNT 4.9 x10^3/uL (4.8-10.8)
--- NOTE | 2018-01-20 15:50 | ED Physician Documentation ---
PD HPI MHE - Stated complaint Stated Complaint: MHE - Chief complaint Chief Complaint: MHE - History obtained from History obtained from: Patient - History of Present Illness Primary symptom: Depression, Anxiety, Out of meds. No: Suicidal ideation Timing - onset: How many days ago (few) Contributing factors: Family. No: Substance abuse - ETOH, Substance abuse - drugs Similar symptoms before: Diagnosis (depression/bipolar) Review of Systems Constitutional: denies: Fever, Chills Nose: denies: Rhinorrhea / runny nose, Congestion Throat: denies: Sore throat Respiratory: denies: Cough GI: denies: Nausea, Vomiting Neurologic: reports: Altered mental status (he says his told him he seemed too sleepy during the day. Patient says he feels good on current medications, less depressed. But is concerned about being sedated during the day, since has to drive son to school/etc.). denies: Generalized weakness, Focal weakness, Numbness, Headache Psychiatric: reports: Depressed, Anxiety. denies: Suicidal, Insomnia PD PAST MEDICAL HISTORY - Past Medical History Cardiovascular: None Respiratory: None Endocrine/Autoimmune: None GI: None : None HEENT: None Psych: Depression Musculoskeletal: None Derm: None - Past Surgical History Past Surgical History: No - Present Medications Home Medications: Ambulatory Orders Medication Instructions Recorded Confirmed Divalproex ER [Depakote ER] 250 mg PO DAILY 01/20/18 01/20/18 Methylphenidate HCl [Concerta] 36 mg PO DAILY #15 tab.er.24 01/20/18 Methylphenidate HCl 36 mg PO 01/20/18 [Methylphenidate ER] - Allergies Allergies/Adverse Reactions: Allergies Allergy/AdvReac Type Severity Reaction Status Date / Time No Known Drug Allergies Allergy Verified 01/20/18 15:23 - Social History Does the pt smoke?: No Smoking Status: Never smoker Does the pt drink ETOH?: Yes Does the pt have substance abuse?: No - Immunizations Immunizations are current?: Yes - POLST Patient has POLST: No PD ED PE NORMAL - Vitals Vital signs reviewed: Yes - General General: Alert and oriented X 3, No acute distress, Well developed/nourished - Neck Neck: Supple, no meningeal sign, No adenopathy - Cardiac Cardiac: RRR, No murmur - Respiratory Respiratory: Clear bilaterally - Neuro Neuro: Alert and oriented X 3, No motor deficit, Normal speech Eye Opening: Spontaneous Motor: Obeys Commands Verbal: Oriented GCS Score: 15 - Psych Psych: Normal mood, Normal affect Results - Vitals Vitals: Oxygen O2 Source Room air - Labs Labs: Laboratory Tests 01/20/18 01/20/18 01/20/18 15:35 15:35 15:45 WBC 4.9 RBC 5.25 Hgb 15.5 Hct 45.5 MCV 86.7 MCH 29.6 MCHC 34.1 RDW 13.3 Plt Count 138 MPV 9.3 Neut # (Auto) 2.7 Lymph # (Auto) 1.5 [place] # (Auto) 0.5 Eos # (Auto) 0.2 Baso # (Auto) 0.0 Absolute Nucleated RBC 0.00 Nucleated RBC % 0.1 Sodium 139 Potassium 3.3 L Chloride 105 Carbon Dioxide 31 Anion Gap 3.0 L BUN 11 Creatinine 1.0 Estimated GFR (MDRD) 88 L Glucose 96 Calcium 9.2 Total Bilirubin 0.5 AST 19 ALT 18 Alkaline Phosphatase 47 Total Protein 7.1 Albumin 4.3 Globulin 2.8 Albumin/Globulin Ratio 1.5 Lipase 34 Urine Color YELLOW Urine Clarity CLEAR Urine pH 7.0 Ur Specific [place] 1.010 Urine Protein NEGATIVE Urine Glucose (UA) NEGATIVE Urine Ketones NEGATIVE Urine Occult Blood NEGATIVE Urine Nitrite NEGATIVE Urine Bilirubin NEGATIVE Urine Urobilinogen 0.2 (NORMAL) Ur Leukocyte Esterase NEGATIVE Ur Microscopic Review NOT INDICATED Urine Culture Comments NOT INDICATED Salicylates < 6.0 Urine Opiates Screen NEGATIVE Ur Oxycodone Screen NEGATIVE Urine Methadone Screen NEGATIVE Ur Propoxyphene Screen NEGATIVE Acetaminophen < 10 L Ur Barbiturates Screen NEGATIVE Ur Tricyclics Screen NEGATIVE Ur Phencyclidine Scrn NEGATIVE Ur Amphetamine Screen NEGATIVE U Methamphetamines Scrn NEGATIVE U Benzodiazepines Scrn POSITIVE H Urine Cocaine Screen NEGATIVE U Cannabinoids Screen NEGATIVE Ethyl Alcohol < 5.0 PD MEDICAL DECISION MAKING - ED course Complexity details: reviewed old records, considered differential (depressed but says he feels better on meds, but is feeling sedated during the day and he says his says he is sleepy during days. I talked with patient and decided on decreasing morning dose of depakote. Given refill of meds for short term until can get with PCP/[facility].), d/w patient Departure - Departure Disposition: 01 Home, Self Care Clinical Impression: Cyclothymic disorder Condition: Stable Record reviewed to determine appropriate education?: Yes Follow-Up: Ambar Fine MD [Primary Care Provider] - [facility] [Provider Group] Prescriptions: Methylphenidate HCl [Concerta] 36 mg PO DAILY #15 tab.er.24 Comments: Resume your methylphenidate daily. For your divalproex, decrease the morning dose from 250-125 mg (you will need to split the pill in half). Continue your nighttime dose at 250 mg. This will decrease your daily dose by 25% and hopefully find a balance between the medication working but not feeling too sleepy. Drink lots of fluids and stay well-hydrated. Follow-up with your primary care. Refer to the attached list for counseling programs in the [place] and call and see which ones take the [facility] insurance. Discharge Date/Time: 01/20/18 16:53
[2018-01-20 15:57] LABS: MUDS CUTOFF CONCENTRATIONS CUTOFF CONC BELOW:
[2018-01-20 15:57] LABS: ACETAMINOPHEN < 10 ug/mL (10-30); ALBUMIN 4.3 g/dL (3.2-5.5); ALBUMIN/GLOBULIN RATIO 1.5 (1.0-2.2); ALKALINE PHOSPHATASE 47 IU/L (42-121); ALT ALANINE AMINOTRANSFERASE 18 IU/L (10-60); AST ASPARTATE AMINOTRANSFERASE 19 IU/L (10-42); BILIRUBIN,TOTAL 0.5 mg/dL (0.2-1.0); BUN - BLOOD UREA NITROGEN 11 mg/dL (6-20); CALCIUM 9.2 mg/dL (8.5-10.3); CARBON DIOXIDE - CO2 31 mmol/L (21-32); CHLORIDE 105 mmol/L (101-111); GFR - MDRD 88 (>89); GLUCOSE 96 mg/dL (70-100); LIPASE 34 U/L (22-51); SALICYLATE < 6.0 mg/dL; SODIUM 139 mmol/L (135-145); TOTAL PROTEIN 7.1 g/dL (6.7-8.2)
[2018-01-20 16:01] LABS: BILIRUBIN,URINE NEGATIVE (NEGATIVE); GLUCOSE, URINE (UA) NEGATIVE (NEGATIVE); KETONES,URINE (UA) NEGATIVE (NEGATIVE); LEUKOCYTE ESTERASE, URINE NEGATIVE (NEGATIVE); NITRITE,URINE NEGATIVE (NEGATIVE); OCCULT BLOOD,URINE NEGATIVE (NEGATIVE); PROTEIN,URINE NEGATIVE (NEGATIVE); UROBILINOGEN,URINE 0.2 (NORMAL) E.U./dL (NORMAL)
[2018-01-20 16:07] LABS: CLARITY,URINE CLEAR (CLEAR)
[2018-01-20 16:19] LABS: COCAINE SCREEN URINE NEGATIVE (NEGATIVE)
[2018-01-20 16:20] LABS: AMPHETAMINE SCREEN,URINE NEGATIVE (NEGATIVE); BENZODIAZEPINES SCREEN, URINE POSITIVE (NEGATIVE); METHADONE SCREEN, URINE NEGATIVE (NEGATIVE); METHAMPHETAMINES SCREEN, URINE NEGATIVE (NEGATIVE); OPIATE SCREEN, URINE NEGATIVE (NEGATIVE); OXYCODONE SCREEN, URINE NEGATIVE (NEGATIVE); PROPOXYPHENE SCREEN, URINE NEGATIVE (NEGATIVE); TRICYCLIC ANTIDEPRESSANT,URINE NEGATIVE (NEGATIVE)
[2018-01-20 16:53] VITALS: BP 124/83
== END 2018-01-20 16:53 | disposition home or self-care (01) ==
LOC: ED 15:09
DX: F34.0 Cyclothymic disorder (principal); Z76.0 Encounter for issue of repeat prescription
CPT/HCPCS: 36415; 80053; 80306; 80307; 80320; 80329; 81001; 81003; 83690; 85025; 87086; 99283

== ENCOUNTER 2018-04-01 12:26 | Outpatient (CLI) | payer OTHER ==
--- NOTE | 2018-04-01 17:18 | MRI Report ---
Reason: LBP Procedure Date: 04/01/2018 Accession Number: [id number] / [id number] Procedure: MRI - Lumbar Spine W/O CPT Code: FULL RESULT: EXAM: MRI LUMBAR SPINE WITHOUT CONTRAST EXAM DATE: 04/01/2018 12:48 PM. CLINICAL HISTORY: Low back pain. COMPARISON: CT abdomen and pelvis without contrast 11/25/2016. TECHNIQUE: Multiplanar, multisequence T1-weighted and fluid-sensitive sequences of the lumbar spine from T12 to S1 without contrast. Other: None. FINDINGS: Spinal Canal: The conus terminates at T12. The conus medullaris and cauda equina are unremarkable. The spinal canal is adequate. Alignment: Minimal dextrorotatory curvature of the mid and lower lumbar spine is seen. No spondylolisthesis. Bone Marrow: Five [id number] lumbar vertebral bodies are assumed. No gross fractures or bone lesions. No bone marrow replacement. Disk Levels/Facets: T12-L1: Unremarkable. L1-L2: Unremarkable. L2-L3: Unremarkable. L3-L4: Unremarkable. L4-L5: Unremarkable. L5-S1: Unremarkable. Musculature: Normal. No edema or fatty atrophy. Other: The partially visualized retroperitoneum is unremarkable. IMPRESSION: 1. Unremarkable MRI of the lumbar spine. No significant spondylosis. No stenosis. Comment: The following findings are so common in adults without low back pain that while we report their presence, they must be interpreted with caution and in the context of the clinical situation. (Reference Princek et al, Spine 2001) Prevalence of findings in patients without low back pain: Disk degeneration (any evidence): 92% Disk desiccation/T2 signal loss: 83% Disk height loss: 56% Disk bulge: 64% Disk protrusion: 32% Annular tear/high intensity zone: 38% RADIA
== END 2018-04-01 12:27 | disposition home or self-care (01) ==
LOC: DI 12:26
PROVIDERS: ATTEND Internal Medicine
DX: M54.5 Low back pain (principal)
CPT/HCPCS: 72148

== ENCOUNTER 2018-12-13 11:37 | Outpatient (CLI) | payer OTHER ==
--- NOTE | 2018-12-13 12:18 | XRAY Report ---
Reason: CRUSHING INJURY OF RIGHT INDEX FINGER, INITIAL ENC Procedure Date: 12/13/2018 Accession Number: [id number] / [id number] Procedure: XR - Finger(s) RT CPT Code: FULL RESULT: EXAM: RIGHT SECOND FINGER DIGIT RADIOGRAPHY, 3 VIEWS EXAM DATE: 12/13/2018 11:51 AM. CLINICAL HISTORY: Crushing injury of right index finger in a 33-year-old male. Initial evaluation. COMPARISON: None. TECHNIQUE: Coned-down frontal, lateral and oblique views. FINDINGS: Bones: Normal. No fracture or bone lesion. Joints: Normal. No subluxations. Soft Tissues: Normal. No soft tissue swelling. IMPRESSION: Normal examination. No fracture, joint or other posttraumatic abnormality noted. RADIA
== END 2018-12-13 11:38 | disposition home or self-care (01) ==
LOC: DI 11:37
PROVIDERS: ATTEND Internal Medicine
DX: S67.190A Crushing injury of right index finger, initial encounter (principal)
CPT/HCPCS: 73140

== ENCOUNTER 2020-04-26 12:13 | Outpatient (CLI) | payer OTHER ==
--- NOTE | 2020-04-26 13:14 | XRAY Report ---
PROCEDURE: Wrist 3 View RT INDICATIONS: RIGHT WRIST PAIN TECHNIQUE: 3 views of the wrist were acquired. COMPARISON: None. FINDINGS: Bones: No acute fractures or dislocations. No suspicious bony lesions. Soft tissues: No suspicious soft tissue calcifications. IMPRESSION: No acute osseous abnormality. If there is clinical concern or persistent symptoms, additional imaging such as repeat radiographs or advanced imaging (e.g. CT, MRI) may be helpful for further evaluation. Reviewed by: Sukumar Epstein MD on 04/26/2020 1:13 PM [facility] Approved by: Sukumar Epstein MD on 04/26/2020 1:13 PM [facility] Station ID: [id number]
== END 2020-04-26 12:14 | disposition home or self-care (01) ==
LOC: DI 12:13
PROVIDERS: ATTEND Internal Medicine
DX: M25.531 Pain in right wrist (principal)